=== PATIENT | female | born 2000 | race American Indian/Alaskan Native ===

== ENCOUNTER 2019-06-03 12:45 | Emergency (ER) | payer SELFPAY ==
--- NOTE | 2019-06-03 15:15 | Event Note ---
ED Screening Note Date of service: 06/03/19 Time: 15:11 ED Screening Note: This is a 19 y.o. F. that presents to the ER with sharp abdominal pain and vaginal bleeding that started today. LMP 04/26/2019, A0 Positive test 3 days ago. This initial assessment/diagnostic orders/clinical plan/treatment(s) is/are subject to change based on patients health status, clinical progression and re- assessment by fellow clinical providers in the ED. Further treatment and workup at subsequent clinical providers discretion. Patient/guardian urged not to elope from the ED as their condition may be serious if not clinically assessed and managed. Initial orders include: Labs and OB US
[2019-06-03 15:36] LABS: Basophils % (Auto) 0.6 % (0.0-1.8); Eosinophils # (Auto) 0.3 K/mm3 (0.0-0.4); Eosinophils % (Auto) 4.4 % (0.0-4.3); Hematocrit 37.6 % (30.3-42.9); Hemoglobin 12.2 gm/dl (10.1-14.3); Lymphocytes # (Auto) 2.2 K/mm3 (1.2-5.4); Lymphocytes % (Auto) 33.5 % (13.4-35.0); Mean Corpuscular HGB Conc 32 % (30-34); Mean Corpuscular Volume 90 fl (79-97); Monocytes # (Auto) 0.5 K/mm3 (0.0-0.8); Monocytes % (Auto) 6.9 % (0.0-7.3); Platelet Count 185 K/mm3 (140-440); Red Blood Count 4.16 M/mm3 (3.65-5.03); Red Cell Distribution Width 16.9 % (13.2-15.2)
[2019-06-03 16:13] LABS: Bilirubin,Urine NEG (Negative); Blood,Urine MOD (Negative); Color,Urine Yellow (Yellow); Mucus,Urine 1+ /HPF; Protein,Urine <15 mg/dL mg/dL (Negative); Urobilinogen,Urine < 2.0 mg/dL (<2.0)
[2019-06-03 16:43] VITALS: BP 143/84
--- NOTE | 2019-06-03 18:05 | Emergency Department Report ---
HPI <EDI MILLER - Last Filed: 06/03/19 19:19> - HPI HPI: 19-year-old female presents to the emergency department with the complaint of some mild pelvic cramping and some vaginal bleeding, along with a positive home test 3 days ago. With this she would be . The bleeding was very mild when it began last night but increased since coming to the emergency department. The pelvic pain however has resolved. She otherwise denies any past medical history. She has not taken anything for her symptoms prior to presentation today. <LUIS REIS - Last Filed: 06/04/19 18:16> - General Chief Complaint: Vaginal Bleeding Time Seen by Provider: 06/03/19 15:11 ED Past Medical Hx <EDI MILLER - Last Filed: 06/03/19 19:19> - Past Medical History Previous Medical History?: No - Surgical History Past Surgical History?: No - Social History Smoking Status: Never Smoker Substance Use Type: Marijuana <LUIS REIS - Last Filed: 06/04/19 18:16> - Medications Home Medications: Home Medications Medication Instructions Recorded Confirmed Last Taken Type ALBUTEROL Inhaler (OR & NICU) 2 puff IH QID PRN #1 inhalation 07/17/18 Unknown Rx [ProAir HFA Inhaler] HYDROcodone/APAP 5-325 [[place] 1 each PO Q4HR PRN #10 tablet 07/17/18 Unknown Rx 5/325] Ondansetron [Zofran Odt] 4 mg PO Q8HR PRN #10 tab.rapdis 07/17/18 Unknown Rx predniSONE [Deltasone] 20 mg PO QDAY #5 tab 07/17/18 Unknown Rx Vit-Fe Fumar-FA [ 1 tab PO QDAY #30 tablet 06/03/19 Unknown Rx Vitamin] ED Review of Systems ROS: Stated complaint: VAG BLEEDING/POSS PREGANCY Other details as noted in HPI <EDI MILLER - Last Filed: 06/03/19 19:19> ROS: Stated complaint: VAG BLEEDING/POSS PREGANCY Other details as noted in HPI Comment: All other systems reviewed and negative Constitutional: denies: chills, fever Eyes: denies: eye pain, vision change ENT: denies: ear pain, throat pain Gastrointestinal: denies: abdominal pain, vomiting Genitourinary: other (vaginal bleeding, pelvic cramping). denies: dysuria, discharge Musculoskeletal: denies: back pain <LUIS REIS - Last Filed: 06/04/19 18:16> Physical Exam - Physical Exam Vital Signs: Vital Signs 06/03/19 06/03/19 15:11 16:37 Temperature 98.3 F 98.4 F Pulse Rate 79 59 L Respiratory 18 15 Rate Blood Pressure 130/79 143/84 O2 Sat by Pulse 100 100 Oximetry <EDI MILLER - Last Filed: 06/03/19 19:19> - Physical Exam Vital Signs: Vital Signs 06/03/19 06/03/19 15:11 16:37 Temperature 98.3 F 98.4 F Pulse Rate 79 59 L Respiratory 18 15 Rate Blood Pressure 130/79 143/84 O2 Sat by Pulse 100 100 Oximetry Physical Exam: GENERAL: The patient is well-developed well-nourished. HENT: Normocephalic. Atraumatic. Patient has moist mucous membranes. EYES: Extraocular motions are intact. NECK: Supple. Trachea is midline. CHEST/LUNGS: Clear to auscultation. There is no respiratory distress noted. HEART/CARDIOVASCULAR: Regular. There is no tachycardia. There is no murmur. ABDOMEN: Abdomen is soft, nontender. Patient has normal bowel sounds. There is no abdominal distention. SKIN: Skin is warm and dry. NEURO: The patient is awake, alert, and oriented. The patient is cooperative. The patient has no focal neurologic deficits. Normal speech. MUSCULOSKELETAL: There is no tenderness or deformity. There is no evidence of acute injury. <LUIS REIS - Last Filed: 06/04/19 18:16> ED Course Vital Signs 06/03/19 06/03/19 15:11 16:37 Temperature 98.3 F 98.4 F Pulse Rate 79 59 L Respiratory 18 15 Rate Blood Pressure 130/79 143/84 O2 Sat by Pulse 100 100 Oximetry <EDI MILLER - Last Filed: 06/03/19 19:19> Vital Signs 06/03/19 06/03/19 15:11 16:37 Temperature 98.3 F 98.4 F Pulse Rate 79 59 L Respiratory 18 15 Rate Blood Pressure 130/79 143/84 O2 Sat by Pulse 100 100 Oximetry <LUIS REIS - Last Filed: 06/04/19 18:16> ED Medical Decision Making - Lab Data Result diagrams: 06/03/19 15:21 Laboratory Results - last 24 hr 06/03/19 06/03/19 06/03/19 15:21 15:21 15:21 WBC 6.7 RBC 4.16 Hgb 12.2 Hct 37.6 MCV 90 MCH 29 MCHC 32 RDW 16.9 H Plt Count 185 Lymph % (Auto) 33.5 Tate % (Auto) 6.9 Eos % (Auto) 4.4 H Baso % (Auto) 0.6 Lymph # 2.2 Tate # 0.5 Eos # 0.3 Baso # 0.0 Seg Neutrophils % 54.6 Seg Neutrophils # 3.6 HCG, Qual Positive HCG, Quant 35.73 H Urine Color Urine Turbidity Urine pH Ur Specific [place] Urine Protein Urine Glucose (UA) Urine Ketones Urine Blood Urine Nitrite Urine Bilirubin Urine Urobilinogen Ur Leukocyte Esterase Urine WBC (Auto) Urine RBC (Auto) U Epithel Cells (Auto) Urine Mucus Blood Type 06/03/19 06/03/19 15:21 15:59 WBC RBC Hgb Hct MCV MCH MCHC RDW Plt Count Lymph % (Auto) Tate % (Auto) Eos % (Auto) Baso % (Auto) Lymph # Tate # Eos # Baso # Seg Neutrophils % Seg Neutrophils # HCG, Qual HCG, Quant Urine Color Yellow Urine Turbidity Clear Urine pH 6.0 Ur Specific [place] 1.021 Urine Protein <15 mg/dl Urine Glucose (UA) Neg Urine Ketones Neg Urine Blood Mod Urine Nitrite Neg Urine Bilirubin Neg Urine Urobilinogen < 2.0 Ur Leukocyte Esterase Neg Urine WBC (Auto) 1.0 Urine RBC (Auto) 55.0 U Epithel Cells (Auto) 3.0 Urine Mucus 1+ Blood Type A POSITIVE - Radiology Data Radiology results: report reviewed, image reviewed No evidence of IUP - Medical Decision Making Ms. Armendariz presents with findings of spontaneous upon review of US results and hcg level. Unfortunately, I was not able to complete the evaluation. Ms. Armendariz eloped before results were available. Rh + A positive I attempted to contact Ms. Armendariz by phone. Phone number was inactive. <EDI MILLER - Last Filed: 06/03/19 19:19> - Lab Data Result diagrams: 06/03/19 15:21 - Medical Decision Making Patient appears to have had a spontaneous . Beta hCG was down to 35. Based on her last menstrual cycle she should be about 3-4 weeks and I would expect a higher beta hCG. Ultrasound did not show any signs of intrauterine . Blood type is A+ and therefore no need for RhoGAM shot. - Differential Diagnosis , miscarriage, spontaneous miscarriage <LUIS REIS - Last Filed: 06/04/19 18:16> Critical care attestation.: If time is entered above; I have spent that time in minutes in the direct care of this critically ill patient, excluding procedure time. <EDI MILLER - Last Filed: 06/03/19 19:19> Critical Care Time: No Critical care attestation.: If time is entered above; I have spent that time in minutes in the direct care of this critically ill patient, excluding procedure time. <LUIS REIS - Last Filed: 06/04/19 18:16> ED Disposition Is pt being admited?: No Does the pt Need Aspirin: No <EDI MILLER - Last Filed: 06/03/19 19:19> Is pt being admited?: No Time of Disposition: 18:05 <LUIS REIS S - Last Filed: 06/04/19 18:16> Clinical Impression: Spontaneous , Threatened miscarriage Disposition: Z-[id number] ELOPED Condition: Stable Instructions: Threatened Miscarriage (ED), (ED) Additional Instructions: You will need to have a repeat hormone level done in about 4 or 5 days. Your hormone level today was 35. If the hormone level is increasing, this may be a very early . If the hormone level is decreasing, this may have been a miscarriage. Return to the emergency Department with any worsening of your symptoms or any acute distress. I am giving you multiple referrals for local [facility] groups. Prescriptions: Vit-Fe Fumar-FA [ Vitamin] 1 tab PO QDAY #30 tablet Referrals: [facility] [Provider Group] - 3-5 Days [facility] [Provider [facility]] - 3-5 Days [facility] [Provider Group] - 3-5 Days
--- NOTE | 2019-06-04 07:14 | Ultrasound Report ---
Obstetrical ultrasound. 06/03/2019. HISTORY: Right neck. Bleeding. FINDINGS: Imaging was performed transabdominally and endovaginally. The uterus measures 7.7 x 3.7 x 4.8. The endometrial stripe measures 12.3 cm. Right ovary measures 2 x 1.9 x 2.2 cm. Left ovary measures 2.8 x 1.6 x 2.2 cm. A small physiologic cy st at the left ovary measures 1 cm. Both ovaries contain flow. Negative for adnexal mass or fluid. Moderate fluid is present at the cul-de-sac. IMPRESSION: 1. Mildly thickened endometrial stripe without intrauterine . 2. Moderate fluid at the cul-de-sac. Signer Name: Aric Barillas MD Signed: 06/04/2019 7:10 AM Workstation Name: [id number]
== END 2019-06-03 18:55 | disposition left against medical advice (07) ==
LOC: ED 12:45
DX: O20.0 Threatened abortion (principal); O99.321 Drug use complicating pregnancy, first trimester; F12.10 Cannabis abuse, uncomplicated; Z79.899 Other long term (current) drug therapy; Z3A.01 Less than 8 weeks gestation of pregnancy
CPT/HCPCS: 36415; 76801; 76817; 81001; 84702; 84703; 85025; 86900; 86901